=== PATIENT | male | born 1970 | race American Indian/Alaskan Native ===

== ENCOUNTER 2018-10-30 03:56 | Emergency (ER) | payer OTHER ==
[2018-10-30 04:10] VITALS: BP 162/108
[2018-10-30] MEDS ORDERED: ASPIRIN PO ONE (04:10)
[2018-10-30 04:49] LABS: Basophils # (Auto) 0.1 K/mm3 (0.0-0.1); Basophils % (Auto) 0.6 % (0.0-1.8); Eosinophils # (Auto) 0.1 K/mm3 (0.0-0.4); Eosinophils % (Auto) 0.5 % (0.0-4.3); Hematocrit 34.1 % (35.5-45.6); Hemoglobin 11.2 gm/dl (11.8-15.2); Lymphocytes # (Auto) 2.7 K/mm3 (1.2-5.4); Mean Corpuscular HGB Conc 33 % (32-34); Mean Corpuscular Volume 91 fl (84-94); Monocytes # (Auto) 1.1 K/mm3 (0.0-0.8); Monocytes % (Auto) 8.3 % (0.0-7.3); Platelet Count 304 K/mm3 (140-440); Red Blood Count 3.77 M/mm3 (3.65-5.03); Red Cell Distribution Width 17.2 % (13.2-15.2)
[2018-10-30 05:14] LABS: BUN/Creatinine Ratio 12; Blood Urea Nitrogen 16 mg/dL (9-20); Calcium 9.3 mg/dL (8.4-10.2); Hemolysis Index 2
--- NOTE | 2018-10-30 07:13 | Emergency Department Report ---
Upper Extremity - HPI Chief Complaint: Chest Pain Stated Complaint: CP Time Seen by Provider: 10/30/18 06:52 Upper Extremity: Left Shoulder Occurred When: 1 Day Severity: severe Symptoms: Yes Pain with Movement, Yes Limited Range of Movement, No Deformity, No Numbness, No Weakness, No Swelling, No Bruising/Ecchymosis, No Laceration or Abrasion Other History: Mr. Anders is a 48 yo male with hx of RA, HTN who presents with severe left shoulder pain for 1-2 days. Left shoulder feels stiff like he has a "contusion". Was told by his salvage determiner that a joint could flare up with increased use. He has been exercising more lately with upper body strength training. No recent injury. Last year September he injured his left shoulder with heavy lifting on his job at [employer]. Diagnosed with a fracture by orthopedic surgeon. Did not require surgery. Treated with physical therapy. Normally joint pain resolves with home prednisone which he took prior to arrival to ED. Prednisone did not resolved pain. Pain is worse with movement radates to left chest. RA normally effects hands, knees and ankles. PCP Dr. Osmany Self, [place]. According to EMR, October 09, 2014 normal myocardial perfusion study EF 68% ED Review of Systems ROS: Stated complaint: CP Other details as noted in HPI Comment: All other systems reviewed and negative Constitutional: denies: fever, malaise Cardiovascular: chest pain Musculoskeletal: arthralgia ED Past Medical Hx - Past Medical History Previous Medical History?: Yes Hx Hypertension: Yes Hx Congestive Heart Failure: No Hx Diabetes: No Hx Renal Disease: Yes (renal insufficiency with creatinine of 1.7 in November of 2012) Hx Sickle Cell Disease: No Hx Arthritis: Yes (RA) Hx Asthma: No Hx COPD: No Additional medical history: gout - Surgical History Past Surgical History?: Yes Additional Surgical History: Right foot surgery - Social History Smoking Status: Never Smoker Substance Use Type: Alcohol - Medications Home Medications: Home Medications Medication Instructions Recorded Confirmed Last Taken Type Lisinopril/Hydrochlorothiazide 1 tab PO QDAY 10/09/14 07/22/18 07/22/18 History [Zestoretic 20-25 mg] Ibuprofen [Motrin] 800 mg PO Q8HR PRN #30 tablet 08/15/15 07/22/18 Unknown Rx traMADol [Ultram] 50 mg PO Q6HR PRN #14 tablet 08/15/15 07/22/18 Unknown Rx Mitigare 0.6 mg PO DAILY PRN 07/22/18 07/22/18 07/20/18 History metFORMIN [Glucophage] 500 mg PO QDAY 07/22/18 07/22/18 07/22/18 History traMADol [Ultram 50 MG tab] 50 mg PO Q6HR PRN #14 tablet 07/22/18 Unknown Rx HYDROcodone/APAP 5-325 [[place] 1 each PO Q4HR PRN #12 tablet 09/25/18 Unknown Rx 5/325] Ibuprofen [Motrin] 800 mg PO Q8HR PRN #20 tablet 09/25/18 Unknown Rx predniSONE [Deltasone] 20 mg PO QDAY #5 tab 09/25/18 Unknown Rx HYDROcodone/APAP 5-325 [[place] 1 each PO Q6HR PRN #10 tablet 10/30/18 Unknown Rx 5/325] Upper Extremity Exam - Exam General: Vital signs noted. No distress. Alert and acting appropriately. General: Well-appearing, no acute distress, resting comfortably HEENT: Normocephalic atraumatic anicteric sclera Nose: no rhinorrhea Oropharynx: Clear mucous membranes no lesions Neck: supple, no meningismus Chest: Clear to auscultation bilaterally no rales rhonchi no wheezes Cardiac: Regular rate and rhythm no murmurs no rubs no gallops Abdomen: Soft nontender nondistended positive bowel sounds no guarding Extremities: No cyanosis no clubbing no edema Neuro: Moves all extremities 4, no gross deficits Psychiatric: Alert and oriented 4 normal affect normal judgment normal insight Head and Torso: No HEENT Abnormality, No Neck Tenderness, No Chest/Lungs Abnormality, No Abdominal Tenderness, No Back Tenderness Shoulder Exam: Yes Normal Range of Motion in Shoulder, No Shoulder Tenderness, No Clavicle Tenderness, No Shoulder Deformity, No AC Joint Tenderness Arm Exam: No Arm/Humerus Tenderness, No Arm Deformity Elbow: No Elbow Tenderness, No Normal Range of Motion in Elbow, No Elbow Deformity Forearm: No Forearm Tenderness, No Forearm Deformity, No Pain with Pronation, No Pain with Supination Wrist: Yes Normal ROM in Wrist, No Wrist Tenderness, No Wrist Deformity, No Snuffbox Tenderness, No Pain with Axial Thumb Compression Hand: Yes Normal ROM in Digit(s), No Hand Tenderness, No Hand Deformity, No Digit Tenderness, No Digit(s) Deformity, No Tendon Dysfunction CMS Exam: No Broken Skin, No Normal Distal Pulses, No Normal Capillary Refill, No Normal Distal Sensation ED Course Vital Signs 10/30/18 10/30/18 04:04 06:08 Temperature 97.7 F Pulse Rate 76 Respiratory 18 18 Rate Blood Pressure 162/108 O2 Sat by Pulse 98 99 Oximetry ED Medical Decision Making - Lab Data Result diagrams: 10/30/18 04:18 10/30/18 04:18 Laboratory Results - last 24 hr 10/30/18 10/30/18 10/30/18 04:07 04:18 04:18 WBC 13.7 H RBC 3.77 Hgb 11.2 L Hct 34.1 L MCV 91 MCH 30 MCHC 33 RDW 17.2 H Plt Count 304 Lymph % (Auto) 20.0 [place] % (Auto) 8.3 H Eos % (Auto) 0.5 Baso % (Auto) 0.6 Lymph # 2.7 [place] # 1.1 H Eos # 0.1 Baso # 0.1 Seg Neutrophils % 70.6 H Seg Neutrophils # 9.7 H Sodium 142 Potassium 3.8 Chloride 102.2 Carbon Dioxide 24 Anion Gap 20 BUN 16 Creatinine 1.3 Estimated GFR > 60 BUN/Creatinine Ratio 12 Glucose 99 POC Glucose 92 Calcium 9.3 Troponin T < 0.010 - Medical Decision Making Mr. Anders presents with left shoulder pain possibly due to previous rotator cuff injury or RA flare. Given Toradol in ED. Rx: norco 10 tabs referred to orthopedic surgeon and PCP ACS is highly unlikely. Mr. Anders's presentation is related to a musculoskeletal process. Two sets of troponin negative. EKG unchanged from prio r. 2015, normal cardiac perfusion study. Critical care attestation.: If time is entered above; I have spent that time in minutes in the direct care of this critically ill patient, excluding procedure time. ED Disposition Clinical Impression: Left shoulder pain, Rheumatoid arthritis Disposition: - TO HOME OR SELFCARE Is pt being admited?: No Does the pt Need Aspirin: No Condition: Stable Instructions: Rotator Cuff Tendinitis (ED), Shoulder Sprain (ED) Prescriptions: HYDROcodone/APAP 5-325 [[place] 5/325] 1 each PO Q6HR PRN #10 tablet PRN Reason: Pain Referrals: COLIN LUTHER MD [Staff Physician] - 3-5 Days OSMANY SELF III, APRN-BC [Referring] - 3-5 Days Forms: Work/School Release Form(ED)
[2018-10-30] MEDS ORDERED: TORADOL IV ONE (07:16)
[2018-10-30] MEDS ORDERED: HALDOL IV ONE (08:00)
== END 2018-10-30 09:30 | disposition home or self-care (01) ==
LOC: ED 03:56
DX: M06.9 Rheumatoid arthritis, unspecified (principal); M25.512 Pain in left shoulder; I10 Essential (primary) hypertension
CPT/HCPCS: 36415; 80048; 82962; 84484; 85025; 93005; 93010; 96374; 99284; J1885

== ENCOUNTER 2020-11-26 12:10 | Emergency (ER) | payer OTHER ==
[2020-11-26] MEDS ORDERED: ASPIRIN 325 MG TAB PO ONE (12:14)
--- NOTE | 2020-11-26 12:32 | Event Note ---
ED Screening Note Date of service: 11/26/20 Time: 12:32 ED Screening Note: Patient presents complaining of anterior chest pain which started this morning. He reports associated shortness of breath. This initial assessment/diagnostic orders/clinical plan/treatment(s) is/are subject to change based on patients health status, clinical progression and re- assessment by fellow clinical providers in the ED. Further treatment and workup at subsequent clinical providers discretion. Patient/guardian urged not to elope from the ED as their condition may be serious if not clinically assessed and managed. Initial orders include: Chest pain work-up
[2020-11-26 12:42] LABS: Basophils # (Auto) 0.1 K/mm3 (0.0-0.1); Eosinophils # (Auto) 0.3 K/mm3 (0.0-0.4); Eosinophils % (Auto) 3.3 % (0.0-4.3); Hematocrit 38.2 % (35.5-45.6); Hemoglobin 13.2 gm/dl (11.8-15.2); Lymphocytes # (Auto) 1.9 K/mm3 (1.2-5.4); Mean Corpuscular HGB Conc 35 % (32-34); Mean Corpuscular Volume 91 fl (84-94); Monocytes # (Auto) 0.4 K/mm3 (0.0-0.8); Monocytes % (Auto) 5.2 % (0.0-7.3); Platelet Count 233 K/mm3 (140-440); Red Cell Distribution Width 15.8 % (13.2-15.2)
[2020-11-26 12:56] LABS: Alanine Aminotransferase 23 units/L (7-56); Albumin 3.6 g/dL (3.9-5); BUN/Creatinine Ratio 12; Blood Urea Nitrogen 17 mg/dL (9-20); Calcium 8.6 mg/dL (8.4-10.2); Hemolysis Index 4
--- NOTE | 2020-11-26 13:00 | XRay Report ---
CHEST 1 VIEW 11/26/2020 12:45 PM INDICATION / CLINICAL INFORMATION: Chest Pain. COMPARISON: 07/22/2018 FINDINGS: SUPPORT DEVICES: None. HEART / MEDIASTINUM: No significant abnormality. LUNGS / PLEURA: No significant pulmonary or pleural abnormality. No pneumothorax. ADDITIONAL FINDINGS: No significant additional findings. IMPRESSION: 1. No acute findings. Signer Name: Laz Powell MD Signed: 11/26/2020 12:55 PM Workstation Name: [id number]
--- NOTE | 2020-11-26 13:38 | Emergency Department Report ---
ED Chest Pain HPI - General Chief Complaint: Chest Pain Stated Complaint: CHEST PRESSURE PUI?: No Time Seen by Provider: 11/26/20 12:14 Source: patient, RN notes reviewed, old records reviewed Mode of arrival: Ambulatory Limitations: No Limitations - History of Present Illness Initial Comments: The patient was evaluated in the emergency department for symptoms described in the history of present illness. He/she was evaluated in the context of the global COVID-19 pandemic, which necessitated consideration that the patient mi ght be at risk for infection with the virus that causes COVID-19. Institutional protocols and algorithms that pertain to the evaluation of patients at risk for COVID-19 are in a state of rapid change based on information released by regulatory bodies including the CDC and federal and state organizations. These policies and algorithms were followed during the patient's care in the emergency department. Please note that these policies, procedures and recommendations changed on a rapid basis. The patient is a 50-year-old gentleman. He is not known to myself previously. He presents to the ER with a complaint of right-sided chest wall pain. The pain has been present since upon waking up this morning. The pain does not radiate to the back, arms or neck. He denies vomiting, diaphoresis and exertional shortness of breath. He states he is not a diabetic anymore, that he does have hypertension, he may have a slightly high cholesterol. He appears to have a prior history of renal insufficiency. He denies travel, surgery, oral contraceptive use, posterior leg pain and leg swelling, and DVT, pulmonary embolism risk factors. He denies a family history of ischemic heart disease, DVT and pulmonary embolism risk factors. Does have a local biomass facilitator, but he cannot recall their name. He is not certain if he has had a recent cardiac or stratification or stress test. No headache, neck pain, abdominal pain, vomiting, urinary symptoms, loss of taste or smell. He is right-hand dominant, and does heavy lifting for work. MD Complaint: chest pain -: Gradual, hour(s) Onset: during rest Pain Location: left chest, right chest Pain Radiation: none Severity scale (0 -10): 9 Quality: aching Consistency: constant Improves With: rest Worsens With: palpation Aspirin use within the Past 7 Days: (0) No - Related Data On Oral Contraceptives: No Home Medications Medication Instructions Recorded Confirmed Last Taken Lisinopril/Hydrochlorothiazide 1 tab PO QDAY 10/09/14 07/22/18 07/22/18 [Zestoretic 20-25 mg] Mitigare 0.6 mg PO DAILY PRN 07/22/18 07/22/18 07/20/18 metFORMIN [Glucophage] 500 mg PO QDAY 07/22/18 07/22/18 07/22/18 Previous Rx's Medication Instructions Recorded Last Taken Type Ibuprofen [Motrin] 800 mg PO Q8HR PRN #20 tablet 09/25/18 Unknown Rx predniSONE [Deltasone] 20 mg PO QDAY #5 tab 09/25/18 Unknown Rx Acetaminophen [Non-Aspirin Extra 500 mg PO Q6HR PRN #30 tablet 11/26/20 Unknown Rx Strength] Aspirin [Aspirin BABY CHEW TAB] 81 mg PO QDAY #30 tab.chew 11/26/20 Unknown Rx Allergies Allergy/AdvReac Type Severity Reaction Status Date / Time No Known Allergies Allergy Verified 11/26/20 12:10 Heart Score - HEART Score History: Slightly suspicious EKG: Non-specific Age: 45-65 Risk factors: 1-2 risk factors Troponin: < normal limit HEART Score: 3 - Critical Actions Critical Actions: 0-3 pts:0.9-1.7%risk of adverse cardiac event.Candidate for discharge ED Review of Systems ROS: Stated complaint: CHEST PRESSURE Other details as noted in HPI Constitutional: denies: fever Eyes: denies: eye discharge ENT: denies: epistaxis Respiratory: denies: cough, shortness of breath Cardiovascular: chest pain Gastrointestinal: abdominal pain. denies: hematemesis, melena, hematochezia Genitourinary: denies: dysuria Musculoskeletal: myalgia Neurological: denies: weakness Hematological/Lymphatic: denies: easy bleeding ED Past Medical Hx - Past Medical History Hx Hypertension: Yes Hx Congestive Heart Failure: No Hx Diabetes: No Hx Renal Disease: Yes (renal insufficiency with creatinine of 1.7 in November of 2012) Hx Sickle Cell Disease: No Hx Arthritis: Yes (RA) Hx Asthma: No Hx COPD: No Additional medical history: gout - Surgical History Additional Surgical History: Right foot surgery - Social History Smoking Status: Never Smoker Substance Use Type: Alcohol - Medications Home Medications: Home Medications Medication Instructions Recorded Confirmed Last Taken Type Lisinopril/Hydrochlorothiazide 1 tab PO QDAY 10/09/14 07/22/18 07/22/18 History [Zestoretic 20-25 mg] Mitigare 0.6 mg PO DAILY PRN 07/22/18 07/22/18 07/20/18 History metFORMIN [Glucophage] 500 mg PO QDAY 07/22/18 07/22/18 07/22/18 History Ibuprofen [Motrin] 800 mg PO Q8HR PRN #20 tablet 09/25/18 Unknown Rx predniSONE [Deltasone] 20 mg PO QDAY #5 tab 09/25/18 Unknown Rx Acetaminophen [Non-Aspirin Extra 500 mg PO Q6HR PRN #30 tablet 11/26/20 Unknown Rx Strength] Aspirin [Aspirin BABY CHEW TAB] 81 mg PO QDAY #30 tab.chew 11/26/20 Unknown Rx ED Physical Exam - General Limitations: No Limitations General appearance: alert, in no apparent distress - Head Head exam: Present: atraumatic, normocephalic - Eye Eye exam: Present: normal appearance, EOMI. Absent: nystagmus - ENT ENT exam: Present: normal exam, normal orophraynx, mucous membranes moist, normal external ear exam - Neck Neck exam: Present: normal inspection, full ROM. Absent: tenderness, men ingismus - Respiratory Respiratory exam: Present: normal lung sounds bilaterally, chest wall tenderness. Absent: respiratory distress, wheezes, rales, rhonchi, stridor, decreased breath sounds - Cardiovascular Cardiovascular Exam: Present: normal rhythm, bradycardia, normal heart sounds. Absent: tachycardia, irregular rhythm, systolic murmur, diastolic murmur, rubs, gallop - GI/Abdominal GI/Abdominal exam: Present: soft, normal bowel sounds. Absent: distended, tenderness, guarding, rebound, rigid, pulsatile mass - Rectal Rectal exam: Present: deferred - Extremities Exam Extremities exam: Present: normal inspection, full ROM, other (2+ pulses noted in the bilateral upper and lower extremities. There is no palpable cord. negative Homans sign. Muscular compartments are soft. The pelvis is stable.). Absent: pedal edema, calf tenderness - Back Exam Back exam: Present: normal inspection, full ROM. Absent: tenderness, CVA tenderness (R), CVA tenderness (L), paraspinal tenderness, vertebral tenderness - Neurological Exam Neurological exam: Present: alert, oriented X3, normal gait, other (No facial droop. Tongue midline. Extraocular movements intact bilaterally. Facial sensation intact to light touch in V1, V2, V3 distribution bilaterally. 5 and a 5 strength in 4 extremities. Sensation intact to light touch in 4 extremities.). Absent: motor sensory deficit - Psychiatric Psychiatric exam: Present: normal affect, normal mood - Skin Skin exam: Present: warm, dry, intact, normal color. Absent: rash ED Course Vital Signs 11/26/20 11/26/20 11/26/20 12:20 13:19 13:20 Temperature 98.7 F Pulse Rate 54 L 54 L Respiratory 20 18 16 Rate Blood Pressure 119/65 Blood Pressure 124/73 [Left] O2 Sat by Pulse 96 99 Oximetry 11/26/20 11/26/20 14:39 15:38 Temperature Pulse Rate 58 L 49 L Respiratory 18 16 Rate Blood Pressure Blood Pressure 118/62 131/72 [Left] O2 Sat by Pulse 58 L 96 Oximetry - Reevaluation(s) Reevaluation #1: 11/26/20 15:30 Differential diagnosis, including but not limited to: GERD, gastritis, hiatal hernia, pneumonia, costochondritis, coronary artery disease Assessment and plan: 50-year-old gentleman, who is not currently tachycardic, tachypneic or hypoxic, who is not currently tachycardic, tachypneic or hypoxic, who denies DVT and pulmonary embolism risk factors, who is low risk by Wells criteria for pulmonary embolism, EKG unchanged x2 and from prior EKG from 2019, troponin negative x 1, repeat troponin pending, patient woke up with symptoms, and his reproducible chest wall pain/tenderness. Patient has equal pulses in the upper and lower extremities, no pulsatile abdominal mass, and an unremarkable x-ray of the chest, therefore, aortic disease is very unlikely. Patient at low risk for major adverse cardiac event as per heart score. Given reproducibility, history and physical, do not have a high suspicion for GERD, gastritis, hiatal hernia at this time. Pneumonia is unlikely given history, physical, and x-ray findings. I find coronary artery disease of significance to be unlikely. As per this institutions policy, procedure, protocol, patient's information is transmitted to [facility] cardiology, whereby patient should be contacted within the next 2 days to arrange close outpatient follow-up Reevaluation #2: 11/26/20 16:00 Patient resting comfortably, in stretcher, and in no acute distress. Initially sleeping comfortably. Repeat troponin pending. Care will be transferred to the oncoming ER physician to follow-up on repeat troponin, and if negative, discharge patient to follow-up with outpatient cardiology. STEPHAN score - Stephan Score Age > 65: (0) No Aspirin use within the Past 7 Days: (1) Yes 3 or more CAD Risk Factors: (1) Yes 2 or more Angina events in past 24 hrs: (0) No Known CAD with more than 50% Stenosis: (0) No Elevated Cardiac Markers: (0) No ST Deviation Greater than 0.5mm: (0) No STEPHAN Score: 2 ED Medical Decision Making - Lab Data Result diagrams: 11/26/20 12:21 11/26/20 12:21 Vital Signs 11/26/20 11/26/20 11/26/20 12:20 13:19 13:20 Temperature 98.7 F Pulse Rate 54 L 54 L Respiratory 20 18 16 Rate Blood Pressure 119/65 Blood Pressure 124/73 [Left] O2 Sat by Pulse 96 99 Oximetry 11/26/20 14:39 Temperature Pulse Rate 58 L Respiratory 18 Rate Blood Pressure Blood Pressure 118/62 [Left] O2 Sat by Pulse 58 L Oximetry Lab Results 11/26/20 11/26/20 Range/Units 12:21 12:21 WBC 8.4 (4.5-11.0) K/mm3 RBC 4.20 (3.65-5.03) M/mm3 Hgb 13.2 (11.8-15.2) gm/dl Hct 38.2 (35.5-45.6) % MCV 91 (84-94) fl MCH 32 (28-32) pg MCHC 35 H (32-34) % RDW 15.8 H (13.2-15.2) % Plt Count 233 (140-440) K/mm3 Lymph % (Auto) 23.0 (13.4-35.0) % [place] % (Auto) 5.2 (0.0-7.3) % Eos % (Auto) 3.3 (0.0-4.3) % Baso % (Auto) 1.0 (0.0-1.8) % Lymph # (Auto) 1.9 (1.2-5.4) K/mm3 [place] # (Auto) 0.4 (0.0-0.8) K/mm3 Eos # (Auto) 0.3 (0.0-0.4) K/mm3 Baso # (Auto) 0.1 (0.0-0.1) K/mm3 Seg Neutrophils % 67.5 (40.0-70.0) % Seg Neutrophils # 5.7 (1.8-7.7) K/mm3 Sodium 139 (137-145) mmol/L Potassium 4.0 (3.6-5.0) mmol/L Chloride 104.1 (98-107) mmol/L Carbon Dioxide 28 (22-30) mmol/L Anion Gap 11 mmol/L BUN 17 (9-20) mg/dL Creatinine 1.4 H (0.8-1.3) mg/dL Estimated GFR > 60 ml/min BUN/Creatinine Ratio 12 % Glucose 138 H (75-100) mg/dL Calcium 8.6 (8.4-10.2) mg/dL Total Bilirubin 0.40 (0.1-1.2) mg/dL AST 23 (5-40) units/L ALT 23 (7-56) units/L Alkaline Phosphatase 57 (35-129) units/L Troponin T < 0.010 (0.00-0.029) ng/mL Total Protein 6.0 L (6.3-8.2) g/dL Albumin 3.6 L (3.9-5) g/dL Albumin/Globulin Ratio 1.5 % Lipase 37 (13-60) units/L - EKG Data -: EKG Interpreted by Ma EKG shows normal: sinus rhythm Rate: normal - EKG Data When compared to previous EKG there are: no significant change Interpretation: unchanged when compared t 11/26/20 15:31 Both EKGs today appear to be unchanged from prior EKG from May 2019. EKG #1, interpreted at 12: 18 p.m. Sinus rhythm, bradycardia, rate 52 bpm, left axis deviation, left anterior fascicular block, left ventricular hypertrophy, early repolarization. Not a STEMI. Incomplete right bundle branch block EKG #2 unchanged from prior. Time of interpretation: 15: 00 - Radiology Data Radiology results: pending, report reviewed, image reviewed [facility] [address] [place] [address] XRay Report Signed Patient: JUSTINE CAMARGO III MR#: [id number] : 1970 Acct:[id number] Age/Sex: 50 / M ADM Date: 11/26/20 Loc: ED Attending Dr: Ordering Physician: BRO LUCAS Date of Service: 11/26/20 Procedure(s): XR chest 1V ap Accession Number(s): [id number] cc: BRO LUCAS Fluoro Time In Minutes: CHEST 1 VIEW 11/26/2020 12:45 PM INDICATION / CLINICAL INFORMATION: Chest Pain. COMPARISON: 07/22/2018 FINDINGS: SUPPORT DEVICES: None. HEART / MEDIASTINUM: No significant abnormality. LUNGS / PLEURA: No significant pulmonary or pleural abnormality. No pneumothorax. ADDITIONAL FINDINGS: No signi ficant additional findings. IMPRESSION: 1. No acute findings. Signer Name: Colin Powell MD Signed: 11/26/2020 12:55 PM Workstation Name: [id number] Transcribed By: RH Dictated By: COLIN POWELL III Electronically Authenticated By: COLIN POWELL III Signed Date/Time: 11/26/20 1255 DD/ 1255 TD/TT: Critical care attestation.: If time is entered above; I have spent that time in minutes in the direct care of this critically ill patient, excluding procedure time. ED Disposition Clinical Impression: Chest wall pain Is pt being admited?: No Does the pt Need Aspirin: No Condition: Stable Instructions: Nonspecific Chest Pain, Adult, Chest Wall Pain, Chest Pain (ED) Additional Instructions: Follow-up with a biomass facilitator within the next 3 days. Take the pain medication as needed and directed. Return to the emergency room right away with new pain, worsened pain, migration of pain, projectile vomiting, change in mental status, confusion, inability to tolerate liquid feeds, new, worsened or different symptoms not present on the initial emergency room evaluation. Patient's contact information has been transmitted to [facility] cardiology, and patient should receive a phone call to arrange close outpatient follow-up. However, we also recommend that patient contact this group on his own, to ensure close outpatient follow-up. Prescriptions: Aspirin [Aspirin BABY CHEW TAB] 81 mg PO QDAY #30 tab.chew Acetaminophen [Non-Aspirin Extra Strength] 500 mg PO Q6HR PRN #30 tablet PRN Reason: Pain , Severe (7-10) Referrals: ERICA CAROLINA MD [Staff Physician] - 3-5 Days [facility] [Provider Group] - 3-5 Days
[2020-11-26] MEDS ORDERED: IBUPROFEN 400 MG TAB PO ONE (14:29)
[2020-11-26] MEDS ORDERED: FAMOTIDINE 20 MG TAB PO ONE (14:29)
[2020-11-26] MEDS ORDERED: ACETAMINOPHEN 325 MG TAB PO ONE (14:29)
[2020-11-26 17:33] VITALS: BP 148/90
== END 2020-11-26 17:45 | disposition home or self-care (01) ==
LOC: ED 12:10
DX: R07.89 Other chest pain (principal); I10 Essential (primary) hypertension; M19.91 Primary osteoarthritis, unspecified site; Z98.890 Other specified postprocedural states; Z79.1 Long term (current) use of non-steroidal anti-inflammatories (NSAID); Z79.84 Long term (current) use of oral hypoglycemic drugs; Z79.899 Other long term (current) drug therapy
CPT/HCPCS: 36415; 71045; 80053; 83690; 84484; 85025; 93005

== ENCOUNTER 2021-08-27 05:29 | Emergency (ER) | payer OTHER ==
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
[2021-08-27 07:10] LABS: Basophils # (Auto) 0.1 K/mm3 (0.0-0.1); Basophils % (Auto) 1.2 % (0.0-1.8); Eosinophils # (Auto) 0.1 K/mm3 (0.0-0.4); Eosinophils % (Auto) 1.8 % (0.0-4.3); Hemoglobin 13.3 gm/dl (11.8-15.2); Lymphocytes # (Auto) 2.1 K/mm3 (1.2-5.4); Lymphocytes % (Auto) 26.4 % (13.4-35.0); Mean Corpuscular HGB Conc 32 % (32-34); Mean Corpuscular Volume 95 fl (84-94); Monocytes # (Auto) 0.5 K/mm3 (0.0-0.8); Monocytes % (Auto) 6.8 % (0.0-7.3); Platelet Count 315 K/mm3 (140-440); Red Blood Count 4.43 M/mm3 (3.65-5.03); Red Cell Distribution Width 14.4 % (13.2-15.2)
[2021-08-27 07:27] LABS: Albumin 4.3 g/dL (3.9-5)
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
[2021-08-27] MEDS ORDERED: SODIUM CHLORIDE 0.9% 1000 ML 1,000 ML IV ONE (09:53)
[2021-08-27 11:36] VITALS: BP 133/89
== END 2021-08-27 11:36 | disposition home or self-care (01) ==
LOC: ED 05:29
DX: F10.129 Alcohol abuse with intoxication, unspecified (principal); N28.9 Disorder of kidney and ureter, unspecified; I10 Essential (primary) hypertension; M19.90 Unspecified osteoarthritis, unspecified site; Z79.899 Other long term (current) drug therapy; Y90.9 Presence of alcohol in blood, level not specified
CPT/HCPCS: 36415; 70450; 71045; 72125; 74177; 80053; 83735; 85025; 96360; 99285; Q9967; 80320; G0480